=== PATIENT | male | born 1960 | race Caucasian/White ===

== ENCOUNTER 2020-05-05 12:00 | Inpatient (IN) | payer OTHER ==
[~2020-05-05] VITALS: Ht 167.6 cm; Wt 88.3 kg
[2020-05-05 14:16] LABS: BASOPHILS % (AUTO) 1.5 % (0.0-5.0); EOSINOPHILS % (AUTO) 6.8 % (0.0-8.0); HEMATOCRIT 41.5 % (42-54); LYMPHOCYTES % (AUTO) 23.1 % (21.0-51.0); MEAN CORPUSCULAR HEMOGLOBIN 30.8 pg (27.0-33.0); MEAN CORPUSCULAR VOLUME 93.3 fL (79-99); MONOCYTES % (AUTO) 12.6 % (3.0-13.0); NEUTROPHILS % (AUTO) 55.9 % (40.0-77.0); PLATELET COUNT (AUTO) 353 K/uL (130-400); RED BLOOD CELL COUNT(AUTO) 4.45 MIL/uL (4.50-6.20); RED CELL DISTRIBUTION WIDTH 12.6 % (11.0-15.5); WHITE BLOOD COUNT (AUTO) 8.7 K/uL (4.8-10.8)
[2020-05-05 14:33] LABS: INR 0.9 (0.85-1.15); PROTHROMBIN TIME 9.8 SEC (9.6-11.6)
[2020-05-05 14:34] LABS: ALBUMIN 3.9 g/dL (3.5-5.0); BILIRUBIN,TOTAL 0.8 mg/dL (0.2-1.0); CREATININE 1.1 mg/dL (0.5-1.5); POTASSIUM 3.8 mmol/L (3.5-5.1); TOTAL PROTEIN, SERUM 8.1 g/dL (6.0-8.3)
[2020-05-05 14:45] LABS: HEMOGLOBIN A1C 5.5 % (4.0-6.0)
[2020-05-09] MEDS ORDERED: POTA-79 PO (13:50)
[2020-05-09] MEDS ORDERED: ASPI-1443 PO (13:50)
[2020-05-09] MEDS ORDERED: FURO20TA4 PO (13:50)
[2020-05-09] MEDS ORDERED: ESOM20CA39 PO (13:50)
--- NOTE | 2020-05-09 14:00 | NUR ---
HX RIGHT LEG INFECTION PER PT, HE HAS HAD A LEG INFECTION 3 YRS AGO, OPEN, DRAINING WOUND, WAS TREATED WITH ANTIBIOTICS, WOUND WAS CULTURED BUT PER PT HE WAS NOT INFORMED OF ANY POSITIVE RESULTS FOR MDRO'S. WOUND IS ALREADY HEALED AT PRESENT, PT DENIES ANY S/SX OF INFECTION. NOTIFIED RAMSES SANDOVAL OF INFECTION CONTROL AND PER RAMSES, NO NEED TO PLACE PT ON ISOLATION AND TO NOTIFY MD/OR. JAIME PICHARDO DR. NURSE NOTIFIED.
--- NOTE | 2020-05-09 14:04 | NUR ---
NOTIFIED JAIME PICHARDO DR. NURSE OF CAROTID DUPLEX RESULT. ORDERS TO DRAW TYPE AND CROSS 2 UNITS PLATELETS, 2 UNITS FFP UPON ARRIVAL TO [facility]
[2020-05-11] VITALS (9 sets, daily range): BP systolic 109–137; BP diastolic 49–63
[2020-05-11] MEDS: CEFUROXIME SODIUM 1.5 GM VIAL IVP SCH ×3 (06:00→13:50)
[2020-05-11] MEDS ORDERED: EPINEPHRINE 10 MG in SODIUM CHLORIDE 0.9% 240 ML IV PRN (08:00)
[2020-05-11] MEDS ORDERED: NOREPINEPHRINE BITARTRATE 8 MG in DEXTROSE 5%-WATER 250 ML IV PRN (08:00)
[2020-05-11] MEDS ORDERED: AMINOCAPROIC ACID 15,000 MG in SODIUM CHLORIDE 0.9% 500ML 500 ML IV PRN (08:00)
--- NOTE | 2020-05-11 08:00 | NUR ---
POTENTIAL FOR INFECTION: CLIPPED FROM CHIN TO FEET PER SEVEN BOCANEGRA, FOLLOWED BY WIPING WITH ELIAS : 2% CHLORHEXIDINE GLUCONATE CLOTH PATIENTS PRE-OP SKIN PREP.
[2020-05-11] MEDS ORDERED: NITROGLYCERIN 50 MG/D5% WATER 1 BOT ONE (08:50)
[2020-05-11] MEDS ORDERED: CEFAZOLIN SODIUM 1 GM VIAL ONE (09:10)
[2020-05-11] MEDS ORDERED: HEPARIN SODIUM 1000UNIT/ML 10ML VIAL ONE (09:10)
[2020-05-11] MEDS ORDERED: SODIUM BICARB 50MEQ 50ML VIAL ONE ×2 (09:10→09:34)
[2020-05-11] MEDS ORDERED: EPINEPHRINE 1 MG/ML AMPULE ONE (09:10)
[2020-05-11] MEDS ORDERED: AMINOCAPROIC ACID 250 MG/ML 20 ML VIAL IV ONE ×2 (09:10→11:45)
[2020-05-11] MEDS ORDERED: LIDOCAINE PF 2% 5ML ABBOJECT ONE (09:10)
[2020-05-11] MEDS ORDERED: PROTAMINE SULFATE 10 MG/ML 25ML VIAL IV ONE (09:10)
[2020-05-11] MEDS ORDERED: ESMOLOL HCL 10 MG/ML 10 ML VIAL ONE (09:10)
[2020-05-11] MEDS ORDERED: PROPOFOL 10 MG/ML 20ML VIAL IV ONE (09:11)
[2020-05-11] MEDS ORDERED: ROPIVACAINE 0.5% 5MG/ML 30ML IJ ONE (09:11)
[2020-05-11] MEDS ORDERED: FENTANYL CITRATE PF 50 MCG/1 ML 20ML VIAL IJ ONE (09:11)
[2020-05-11] MEDS ORDERED: ROCURONIUM 10MG/1ML SYR 10 MG/ML ML ONE ×2 (09:11→17:59)
[2020-05-11] MEDS ORDERED: MIDAZOLAM HCL 1 MG/ML 2ML VIAL ONE (09:11)
[2020-05-11] MEDS ORDERED: NOREPINEPHRINE BITARTRATE 1 MG/1 ML ML IV ONE (09:11)
[2020-05-11] MEDS ORDERED: KETAMINE 50MG/ML SYRINGE 50 MG/ML DISP.SYRIN IV ONE (09:12)
[2020-05-11] MEDS ORDERED: SODIUM CHLORIDE 0.9% 1000ML 1,000 ML IV ONE ×2 (09:19→16:39)
[2020-05-11] MEDS ORDERED: AMIODARONE HCL 50 MG/ML 3 ML VIAL ONE ×2 (09:34→16:35)
[2020-05-11] MEDS ORDERED: VITA1TAB22 PO (09:43)
[2020-05-11] MEDS ORDERED: ROPIVACAINE 0.2% 2MG/ML 100ML VIAL IJ ONE (11:44)
[2020-05-11] MEDS ORDERED: ALBUMIN (HUMAN) 25% 50 ML IV ONE (11:45)
[2020-05-11] MEDS ORDERED: MAGNESIUM SULFATE 1 GM/2 ML VIAL IM ONE (11:45)
[2020-05-11] MEDS ORDERED: LIDOCAINE PF 2% 5ML ABBOJECT IVP ONE (11:45)
[2020-05-11] MEDS ORDERED: MANNITOL 25% 50ML VIAL IV ONE (11:45)
[2020-05-11] MEDS ORDERED: CALCIUM CHLORIDE 100 MG/ML 10 ML SYG IVP ONE (11:45)
[2020-05-11] MEDS ORDERED: HEPARIN SODIUM 1000UNIT/ML 10ML VIAL IV ONE (11:45)
[2020-05-11] MEDS ORDERED: PHENYLEPHRINE HCL 10 MG/ML 1ML VIAL IV ONE (11:45)
[2020-05-11] MEDS ORDERED: SODIUM BICARB 8.4% 50ML SYRINGE IVP ONE (11:45)
[2020-05-11] MEDS ORDERED: EPHEDRINE SULFATE 50 MG/ML AMPULE ONE (13:13)
[2020-05-11] MEDS ORDERED: DELNIDO FORMULA 2 BAG IV ONE (14:17)
[2020-05-11 14:38] LABS: ABG BASE EXCESS 1.3 mmol/L (-2.0-3.0); ABG HCO3 25.7 mmol/L (21.0-28.0); ABG OXYGEN SATURATION 99.2 % (95.0-99.0); ABG PCO2 40 mmHg (35-48)
[2020-05-11] MEDS ORDERED: OCTYL 2-CYANOACRYLATE 1 EACH TP ONE (14:53)
[2020-05-11 16:08] LABS: ABG BASE EXCESS -6.5 mmol/L (-2.0-3.0); ABG HCO3 19.1 mmol/L (21.0-28.0); ABG OXYGEN SATURATION 98.9 % (95.0-99.0); ABG PCO2 38 mmHg (35-48)
[2020-05-11] MEDS ORDERED: SODIUM CHLORIDE 0.9% 500ML 500 ML IV SCH (16:20)
[2020-05-11] MEDS ORDERED: ACETAMINOPHEN 325 MG TAB PO PRN (16:30)
[2020-05-11] MEDS ORDERED: ALBUMIN (HUMAN) 5% 250 ML IV PRN (16:30)
[2020-05-11] MEDS ORDERED: NITROGLYCERIN 50 MG/D5% WATER 250 BOT IV SCH (16:30)
[2020-05-11] MEDS ORDERED: MAGNESIUM 2GM PREMIX 50ML 50 ML IV PRN (16:30)
[2020-05-11] MEDS ORDERED: MORPHINE SULFATE 2 MG/ML 1ML SYG IV PRN ×2 (16:30→17:30)
[2020-05-11] MEDS ORDERED: SODIUM CHLORIDE 0.9% 1000ML 1,000 ML IV SCH (16:30)
[2020-05-11] MEDS ORDERED: NOREPINEPHRINE 4MG/NS 250ML 250 ML IV PRN (16:30)
[2020-05-11] MEDS ORDERED: EPINEPHRINE 10 MG in DEXTROSE 5%-WATER 250 ML IV PRN (16:30)
[2020-05-11] MEDS ORDERED: PROPOFOL 1000 MG/100 ML 100 ML IV PRN (16:30)
[2020-05-11] MEDS ORDERED: TRAMADOL HCL 50 MG TABLET PO PRN (16:30)
[2020-05-11] MEDS ORDERED: GLUCAGON 1MG KIT 1 MG ML IM PRN (16:30)
[2020-05-11] MEDS ORDERED: SODIUM CHLORIDE 0.9% 10 ML VIAL IVP PRN (16:30)
[2020-05-11] MEDS ORDERED: POTASSIUM PHOS 15 mMOL+NS250ML 250 ML IV PRN (16:30)
[2020-05-11] MEDS ORDERED: MORPHINE SULFATE 4 MG/1ML SYG IV PRN (16:30)
[2020-05-11] MEDS ORDERED: DEXTROSE 50%-WATER 50 ML DISP.SYRIN IV PRN (16:30)
[2020-05-11] MEDS ORDERED: INSULIN REGULAR, HUMAN 3ML 100 UNIT in SODIUM CHLORIDE 0.9% 99 ML IV SCH ×2 (16:30)
[2020-05-11] MEDS ORDERED: Q-PUMP 1 EACH IRRIG SCH (16:30)
[2020-05-11] MEDS ORDERED: AMINOCAPROIC ACID 15,000 MG in SODIUM CHLORIDE 0.9% 250 ML IV SCH (16:30)
[2020-05-11] MEDS ORDERED: ACETAMINOPHEN 650 MG SUPPOSITORY RC PRN (16:30)
[2020-05-11] MEDS ORDERED: GLYCOPYRROLATE 1 MG/5 ML SYRINGE ONE (16:44)
[2020-05-11 16:47] LABS: ABG BASE EXCESS 0.3 mmol/L (-2.0-3.0); ABG HCO3 24.4 mmol/L (21.0-28.0); ABG OXYGEN SATURATION 98.6 % (95.0-99.0); ABG PCO2 37 mmHg (35-48)
[2020-05-11] MEDS ORDERED: VASOPRESSIN 20 UNITS/ML 1ML VIAL ONE (16:51)
[2020-05-11] MEDS ORDERED: CEFUROXIME SODIUM 1.5 GM VIAL ONE (17:34)
[2020-05-11 17:47] LABS: ABG BASE EXCESS -4.7 mmol/L (-2.0-3.0); ABG HCO3 19.5 mmol/L (21.0-28.0); ABG OXYGEN SATURATION 98.8 % (95.0-99.0); ABG PCO2 33 mmHg (35-48)
[2020-05-11] MEDS ORDERED: PROTAMINE SULFATE 10 MG/ML 5 ML VIAL ONE (17:50)
[2020-05-11 18:34] LABS: ABG BASE EXCESS -3.3 mmol/L (-2.0-3.0); ABG HCO3 21.9 mmol/L (21.0-28.0); ABG OXYGEN SATURATION 98.4 % (95.0-99.0); ABG PCO2 40 mmHg (35-48)
[2020-05-11] MEDS: POTASSIUM CHLORIDE 20MEQ/100ML 100 ML IV PRN ×6 (18:40→23:44)
[2020-05-11] MEDS: SODIUM BICARB 50MEQ 50ML VIAL IV PRN ×4 (18:40→23:02)
[2020-05-11 18:42] LABS: HEMATOCRIT 32.3 % (42-54); MEAN CORPUSCULAR HEMOGLOBIN 30.8 pg (27.0-33.0); MEAN CORPUSCULAR HGB CONC 33.4 g/dL (32.0-36.0); RED BLOOD CELL COUNT(AUTO) 3.51 MIL/uL (4.50-6.20); RED CELL DISTRIBUTION WIDTH 12.6 % (11.0-15.5); WHITE BLOOD COUNT (AUTO) 24.1 K/uL (4.8-10.8)
[2020-05-11 18:57] LABS: INR 1.06 (0.85-1.15); PROTHROMBIN TIME 11.4 SEC (9.6-11.6)
[2020-05-11 19:12] LABS: CREATININE 1.2 mg/dL (0.5-1.5); MAGNESIUM 2.8 mg/dL (1.80-2.40); PHOSPHORUS 3.2 mg/dL (2.5-4.9); POTASSIUM 3.2 mmol/L (3.5-5.1)
--- NOTE | 2020-05-11 19:15 | NUR ---
PT ARRIVED TO CVR 213 AT 1810. VITAL SIGNS STABLE.
[2020-05-11] MEDS ORDERED: PHARMACY COMMUNICATION MISC SCH ×2 (19:30→20:45)
[2020-05-11] MEDS ORDERED: CALCIUM GLUCONATE 1 GM/10 ML VIAL IV ONE ×2 (19:34→20:23)
[2020-05-11] MEDS: CALCIUM GLUCONATE 1 GM in SODIUM CHLORIDE 0.9% 50 ML IV PRN ×4 (19:35→23:18)
[2020-05-11] MEDS: FAMOTIDINE/PF 20 MG/2 ML VIAL IV SCH (19:36)
[2020-05-11 19:51] LABS: ABG BASE EXCESS -2.4 mmol/L (-2.0-3.0); ABG HCO3 22.7 mmol/L (21.0-28.0); ABG OXYGEN SATURATION 97.8 % (95.0-99.0); ABG PCO2 40 mmHg (35-48)
[2020-05-11] MEDS: CEFAZOLIN SODIUM 1 GM VIAL IV SCH (21:07)
[2020-05-11 21:48] LABS: ABG BASE EXCESS 0.2 mmol/L (-2.0-3.0); ABG HCO3 25.3 mmol/L (21.0-28.0); ABG OXYGEN SATURATION 98.5 % (95.0-99.0); ABG PCO2 43 mmHg (35-48)
[2020-05-11] MEDS: ONDANSETRON HCL 4 MG/2 ML VIAL IV PRN (22:56)
[2020-05-11 22:57] LABS: ABG OXYGEN SATURATION 98.7 % (95.0-99.0); ABG PCO2 36 mmHg (35-48)
--- NOTE | 2020-05-11 23:00 | NUR ---
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 PT WAS ABLE TO ACHIEVE VITAL CAPACITY OF 2000ML AND NIF OF -45. PT EXTUBATED AND PLACED ON 40% CAFM HE WAS ENCOURAGED TO TAKE SLOW DEEP BREATHS. WILL CONTINUE TO MONITOR.
[2020-05-12] VITALS (29 sets, daily range): BP systolic 98–162; BP diastolic 39–82
[2020-05-12 00:41] LABS: ABG OXYGEN SATURATION 98.5 % (95.0-99.0); ABG PCO2 42 mmHg (35-48)
[2020-05-12] MEDS: POTASSIUM CHLORIDE 20MEQ/100ML 100 ML IV PRN ×2 (00:43→01:40)
[2020-05-12 01:48] LABS: CREATININE 1.8 mg/dL (0.5-1.5); MAGNESIUM 2.3 mg/dL (1.80-2.40); POTASSIUM 3.8 mmol/L (3.5-5.1)
[2020-05-12 04:09] LABS: ABG BASE EXCESS 2.2 mmol/L (-2.0-3.0); ABG HCO3 28.7 mmol/L (21.0-28.0); ABG OXYGEN SATURATION 97.3 % (95.0-99.0); ABG PCO2 53 mmHg (35-48)
[2020-05-12 04:26] LABS: MEAN CORPUSCULAR HEMOGLOBIN 30.6 pg (27.0-33.0); MEAN CORPUSCULAR HGB CONC 33.2 g/dL (32.0-36.0); MEAN CORPUSCULAR VOLUME 92.1 fL (79-99); RED BLOOD CELL COUNT(AUTO) 3.69 MIL/uL (4.50-6.20); WHITE BLOOD COUNT (AUTO) 19.8 K/uL (4.8-10.8)
[2020-05-12] MEDS: CALCIUM GLUCONATE 1 GM in SODIUM CHLORIDE 0.9% 50 ML IV PRN ×2 (04:32→12:37)
[2020-05-12 04:44] LABS: INR 0.99 (0.85-1.15); PARTIAL THROMBOPLASTIN TIME 27.4 SEC (26.3-35.5); PROTHROMBIN TIME 10.7 SEC (9.6-11.6)
[2020-05-12 04:46] LABS: CREATININE 1.5 mg/dL (0.5-1.5); MAGNESIUM 2.1 mg/dL (1.80-2.40); PHOSPHORUS 1.2 mg/dL (2.5-4.9); POTASSIUM 4.1 mmol/L (3.5-5.1)
[2020-05-12] MEDS ORDERED: PHARMACY COMMUNICATION MISC SCH (05:00)
[2020-05-12] MEDS: CEFAZOLIN SODIUM 1 GM VIAL IV SCH ×2 (05:07→13:09)
[2020-05-12 07:04] LABS: ABG BASE EXCESS 5.2 mmol/L (-2.0-3.0); ABG HCO3 31.7 mmol/L (21.0-28.0); ABG OXYGEN SATURATION 97.6 % (95.0-99.0); ABG PCO2 55 mmHg (35-48)
[2020-05-12] MEDS: ASPIRIN 81 MG EC TAB PO SCH (08:25)
[2020-05-12] MEDS: FUROSEMIDE 10 MG/ML 2ML VIAL IV SCH ×2 (08:25→21:15)
[2020-05-12] MEDS: FAMOTIDINE/PF 20 MG/2 ML VIAL IV SCH ×2 (08:25→21:15)
[2020-05-12] MEDS: ACETAMINOPHEN 325 MG TAB PO PRN (08:32)
[2020-05-12 13:03] LABS: ABG PCO2 45 mmHg (35-48)
[2020-05-12] MEDS: ONDANSETRON HCL 4 MG/2 ML VIAL IV PRN (13:08)
--- NOTE | 2020-05-12 16:39 | NUR ---
DC PLAN VISITED WITH PATIENT. PATIENT LIVES ALONE. INDEPENDENT ABLE TO PERFORM ADL'S. PATIENT HAS NO SERVICES OR DME'S. FEELS SAFE TO RETURN HOME. SAID HE WILL TAKE A TAXI HOME. DOES NOT HAVE ANY ONE TO HELP HIM. SAID GOT A LOT OF GROCERIES AND WILL BE FINE. GAVE HIM PRIVATE CAREGIVER INFO IN CASE HE NEEDS HELP WITH ADLS. PER PT HAS 14 STAIRS TO GET HOME. NOT SURE WILL BE ABLE TO DO IT. CM WILL FOLLOW UP WITH PATIENT AFTER PT TO SEE IF NEEDS TO GO SOMEPLACE. OFFERED SAID NO IF NEEDS WILL GET HOME HEALTH. CM WILL TRY AGAIN TOMORROW. Addendum: 05/12/20 at 1644 by ANDRÉS WALTER RN Amended: Links added.
[2020-05-12] MEDS: TRAMADOL HCL 50 MG TABLET PO PRN (21:16)
[2020-05-13] VITALS (27 sets, daily range): BP systolic 89–148; BP diastolic 44–74
[2020-05-13] MEDS: TRAMADOL HCL 50 MG TABLET PO PRN (06:31)
[2020-05-13 06:32] LABS: HEMATOCRIT 30.6 % (42-54); MEAN CORPUSCULAR HEMOGLOBIN 31.1 pg (27.0-33.0); MEAN CORPUSCULAR VOLUME 94.2 fL (79-99); RED BLOOD CELL COUNT(AUTO) 3.25 MIL/uL (4.50-6.20); RED CELL DISTRIBUTION WIDTH 13.1 % (11.0-15.5); WHITE BLOOD COUNT (AUTO) 24.1 K/uL (4.8-10.8)
[2020-05-13 06:39] LABS: POTASSIUM 4.1 mmol/L (3.5-5.1)
[2020-05-13] MEDS: FUROSEMIDE 20 MG TABLET PO SCH ×2 (09:52→17:39)
[2020-05-13] MEDS: METOPROLOL TARTRATE 25 MG TAB PO SCH ×2 (09:52→21:39)
[2020-05-13] MEDS: ASPIRIN 81 MG EC TAB PO SCH (09:52)
[2020-05-13] MEDS: ACETAMINOPHEN 325 MG TAB PO PRN (09:54)
[2020-05-13] MEDS: FAMOTIDINE/PF 20 MG/2 ML VIAL IV SCH ×2 (09:54→21:39)
--- NOTE | 2020-05-13 17:00 | NUR ---
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 LATERAL CHEST INCISION DRY AND INTACT, PT IS AMBULATORY FROM CHAIR TO BED, GAIT STEADY AND STRONG WITH STAND BY ASSIST. CALL LIGHT WITHIN REACH.
[2020-05-14] VITALS (10 sets, daily range): BP systolic 92–113; BP diastolic 52–65
--- NOTE | 2020-05-14 00:16 | NUR ---
was called and notified patient voided 20 ml only and Bladder scanned revealed 485ml.Received order to insert Villarreal catheter,Pashto 16 villarreal inserted after explained to patient the procedure and agreed he needs the villarreal.Observed aseptic technique entire procedure.Yellow colored urine draining well.Patient tolerated well.
[2020-05-14 04:07] LABS: HEMATOCRIT 25.8 % (42-54); MEAN CORPUSCULAR HEMOGLOBIN 30.9 pg (27.0-33.0); MEAN CORPUSCULAR HGB CONC 32.9 g/dL (32.0-36.0); MEAN CORPUSCULAR VOLUME 93.8 fL (79-99); NUCLEATED RED BLOOD CELLS 0.1 % (0.0-0.19); RED BLOOD CELL COUNT(AUTO) 2.75 MIL/uL (4.50-6.20); RED CELL DISTRIBUTION WIDTH 12.6 % (11.0-15.5); WHITE BLOOD COUNT (AUTO) 19.4 K/uL (4.8-10.8)
[2020-05-14 04:21] LABS: POTASSIUM 3.9 mmol/L (3.5-5.1)
--- NOTE | 2020-05-14 04:33 | NUR ---
Dr.Sheriff Campbell was called and notiifed regarding ECG result of Afib RVR in the 110-130's inferior infarct possibly acute:Acute SD/STEMI consider right ventricular involvement in acute inferior infarct.Patient denies chest pain,palpitation and shortness of breath.Received new order.
[2020-05-14] MEDS ORDERED: DILTIAZEM HCL 125 MG/25 ML 125 MG in SODIUM CHLORIDE 0.9% 100 ML IV PRN (04:45)
[2020-05-14] MEDS ORDERED: DILTIAZEM HCL 5 MG/ML 5 ML VIAL IVP PRN (04:45)
[2020-05-14] MEDS: POTASSIUM CHLORIDE 10% ELIXIR 20 MEQ/15 ML UDCUP PO SCH (05:45)
--- NOTE | 2020-05-14 07:19 | NUR ---
Patient on Cardizem drip @10mg/hr ,afib rvr /hr in the 130's as per compliance monitor.Endorsed care to incoming NOD using SBAR, all questions answered.
[2020-05-14] MEDS: ENOXAPARIN SODIUM 30 MG/0.3 ML SQ SCH (09:00)
[2020-05-14] MEDS: FAMOTIDINE/PF 20 MG/2 ML VIAL IV SCH ×2 (09:00→20:56)
[2020-05-14] MEDS: ASPIRIN 81 MG EC TAB PO SCH (09:00)
[2020-05-14] MEDS ORDERED: AMIODARONE HCL 900 MG in DEXTROSE 5%-WATER 500 ML IV SCH (12:30)
[2020-05-14] MEDS ORDERED: AMIODARONE HCL 150 MG in DEXTROSE 5%-WATER 100 ML IV SCH (12:30)
[2020-05-14] MEDS ORDERED: AMIODARONE HCL 450 MG in DEXTROSE 5%-WATER 250 ML IV SCH (12:45)
[2020-05-14] MEDS ORDERED: AMIODARONE HCL 360 MG in DEXTROSE 5%-WATER 200 ML IV SCH (12:45)
[2020-05-14] MEDS: FUROSEMIDE 20 MG TABLET PO SCH ×2 (13:07→20:57)
[2020-05-14] MEDS: METOPROLOL TARTRATE 25 MG TAB PO SCH (13:07)
[2020-05-14] MEDS: TAMSULOSIN HCL 0.4 MG CAP.ER.24H PO SCH (13:07)
[2020-05-14] MEDS ORDERED: PHARMACY COMMUNICATION MISC SCH ×2 (15:30→21:45)
[2020-05-14] MEDS: TRAMADOL HCL 50 MG TABLET PO PRN (21:26)
[2020-05-14] MEDS ORDERED: DIGOXIN 250 MCG/ML 2ML AMP IV STA (21:45)
[2020-05-15] VITALS (7 sets, daily range): BP systolic 90–120; BP diastolic 50–69
[2020-05-15] MEDS ORDERED: DIGOXIN 250 MCG/ML 2ML AMP IV SCH
[2020-05-15 05:28] LABS: HEMATOCRIT 24.9 % (42-54); MEAN CORPUSCULAR HEMOGLOBIN 30.1 pg (27.0-33.0); MEAN CORPUSCULAR HGB CONC 32.5 g/dL (32.0-36.0); MEAN CORPUSCULAR VOLUME 92.6 fL (79-99); NUCLEATED RED BLOOD CELLS 0.1 % (0.0-0.19); RED BLOOD CELL COUNT(AUTO) 2.69 MIL/uL (4.50-6.20); RED CELL DISTRIBUTION WIDTH 12.4 % (11.0-15.5); WHITE BLOOD COUNT (AUTO) 15.4 K/uL (4.8-10.8)
[2020-05-15 05:42] LABS: CREATININE 0.8 mg/dL (0.5-1.5); MAGNESIUM 2.1 mg/dL (1.80-2.40); POTASSIUM 3.7 mmol/L (3.5-5.1)
[2020-05-15] MEDS: POTASSIUM CHLORIDE 10% ELIXIR 20 MEQ/15 ML UDCUP PO SCH (07:05)
--- NOTE | 2020-05-15 07:40 | NUR ---
ASSESSMENT ENCOUNTERED PT A&OX3, CALM COOPERATIVE AND DOES NOT APPEAR TO BE IN ANY DISTRESS NOR ANY NEURO DEFICITS PRESENT. PT DENIES PAIN, SOB, NAUSEA. TELEMONITOR DISPLAYS NSR WITH INTERMITTENT ATRIAL FIBRILLATION, DR AVILA UPDATED, ORDERS RECEIVED, PT CURRENTLY ON AMIODARONE IV PROTOCOL. 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
[2020-05-15] MEDS: FUROSEMIDE 20 MG TABLET PO SCH ×2 (08:59→21:26)
[2020-05-15] MEDS: TAMSULOSIN HCL 0.4 MG CAP.ER.24H PO SCH (08:59)
[2020-05-15] MEDS: ASPIRIN 81 MG EC TAB PO SCH (08:59)
[2020-05-15] MEDS: FAMOTIDINE 20MG TAB 20 MG TAB PO SCH ×2 (08:59→21:26)
[2020-05-15] MEDS: ENOXAPARIN SODIUM 30 MG/0.3 ML SQ SCH (09:00)
[2020-05-15] MEDS: METOPROLOL TARTRATE 25 MG TAB PO SCH ×2 (09:03→21:26)
[2020-05-15] MEDS: AMIODARONE HCL 200 MG TABLET PO SCH ×2 (10:06→21:26)
[2020-05-15] MEDS: CALCIUM GLUCONATE 1 GM in SODIUM CHLORIDE 0.9% 50 ML IV PRN (10:07)
--- NOTE | 2020-05-15 15:26 | NUR ---
[facility]IN NU[facility]EZ Met with pt this afternoon to discuss Md order/recommendation for SNF [facility]. Pt in agreement [facility]/PC consent obtained for [facility]. Referral/[facility] faxed to [facility]. Spoke jocelyn Gregory regarding new referral. States will review information and submit to ins for auth in am. Discussed Covid 19 form vs Covid testing requirements. states will need to f/u.
[2020-05-15] MEDS: TRAMADOL HCL 50 MG TABLET PO PRN (22:16)
[2020-05-16] MEDS: POTASSIUM CHLORIDE 10% ELIXIR 20 MEQ/15 ML UDCUP PO SCH (02:33)
[2020-05-16 03:44] VITALS: BP 95/49
[2020-05-16] MEDS: ENOXAPARIN SODIUM 30 MG/0.3 ML SQ SCH (07:18)
[2020-05-16] MEDS: AMIODARONE HCL 200 MG TABLET PO SCH ×2 (07:18→19:48)
[2020-05-16] MEDS: FUROSEMIDE 20 MG TABLET PO SCH ×2 (07:18→19:48)
[2020-05-16] MEDS: FAMOTIDINE 20MG TAB 20 MG TAB PO SCH ×2 (07:18→19:47)
[2020-05-16] MEDS: TAMSULOSIN HCL 0.4 MG CAP.ER.24H PO SCH (07:18)
[2020-05-16] MEDS: ASPIRIN 81 MG EC TAB PO SCH (07:19)
[2020-05-16] MEDS: METOPROLOL TARTRATE 25 MG TAB PO SCH ×2 (07:19→19:48)
--- NOTE | 2020-05-16 07:50 | NUR ---
ASSESSMENT PT IS AAOX3 DENIES CP DENIES SOB DENIES NV SITTING UPRIGHT IN CARDIAC CHAIR. CALL LIGHT WITHIN REACH.
[2020-05-16 08:00] VITALS: BP 97/61
[2020-05-16] MEDS ORDERED: DIGOXIN 125 MCG TABLET PO SCH (09:00)
--- NOTE | 2020-05-16 10:00 | NUR ---
cm note faxed edna muller, PT notes and covid form. pending approval will come evaluate.
[2020-05-16 11:26] VITALS: BP 89/52
--- NOTE | 2020-05-16 13:42 | NUR ---
HERMAN CATH DC CATH TIP INTACT DENIES PAIN. DTV IN 8HRS
[2020-05-16 16:00] VITALS: BP 101/58
--- NOTE | 2020-05-16 17:00 | NUR ---
cm note received message,that edna from [employer] has approved pt.
[2020-05-16 19:00] VITALS: BP 96/53
[2020-05-16] MEDS: TRAMADOL HCL 50 MG TABLET PO PRN (19:52)
[2020-05-16 23:08] VITALS: BP 106/47
--- NOTE | 2020-05-17 | NUR ---
PT IS PENDING APPROVAL FROM [email or web address]. IS GENERALLY WEAK BUT STATES IS ABLE TO AMBULATE WITHOUT ASSISTANCE. ROOM AIR AT THIS TIME. O2 PRN. ABLE TO TAKE MEDICATIONS NEEDED. BP WAS DECREASED, HELD THE LOPRESSOR 12.5MG FOR THE MOMENT. WILL MONITOR BP. PT IS ASYMPTOMATIC.
[2020-05-17 03:49] VITALS: BP 96/46
[2020-05-17 05:10] LABS: MEAN CORPUSCULAR HEMOGLOBIN 30.6 pg (27.0-33.0); MEAN CORPUSCULAR HGB CONC 33.2 g/dL (32.0-36.0); MEAN CORPUSCULAR VOLUME 92.3 fL (79-99); PLATELET COUNT (AUTO) 243 K/uL (130-400); RED BLOOD CELL COUNT(AUTO) 2.71 MIL/uL (4.50-6.20); RED CELL DISTRIBUTION WIDTH 12.5 % (11.0-15.5); WHITE BLOOD COUNT (AUTO) 12.6 K/uL (4.8-10.8)
[2020-05-17 05:21] LABS: EOSINOPHILS % (MANUAL) 15 % (1-6); LYMPHOCYTES % (MANUAL) 16 % (22-44); MAN.DIFF COMMENT-IMPRESSION MANUAL DIFFERENTIAL; MONOCYTES % (MANUAL) 13 % (2-9); SEGMENTED NEUTROPHILS % 56 % (40-70)
[2020-05-17 05:26] LABS: CREATININE 0.9 mg/dL (0.5-1.5); POTASSIUM 3.2 mmol/L (3.5-5.1)
[2020-05-17] MEDS ORDERED: POTASSIUM CHLORIDE 20 MEQ ERTAB PO ONE (05:47)
[2020-05-17 08:00] VITALS: BP 109/63
[2020-05-17] MEDS: ASPIRIN 81 MG EC TAB PO SCH (09:03)
[2020-05-17] MEDS: TAMSULOSIN HCL 0.4 MG CAP.ER.24H PO SCH (09:03)
[2020-05-17] MEDS: FAMOTIDINE 20MG TAB 20 MG TAB PO SCH (09:03)
[2020-05-17] MEDS: FUROSEMIDE 20 MG TABLET PO SCH (09:03)
[2020-05-17] MEDS: METOPROLOL TARTRATE 25 MG TAB PO SCH (09:03)
[2020-05-17] MEDS: AMIODARONE HCL 200 MG TABLET PO SCH (09:03)
[2020-05-17] MEDS: ENOXAPARIN SODIUM 30 MG/0.3 ML SQ SCH (09:04)
--- NOTE | 2020-05-17 11:00 | NUR ---
CM Note: [place] approval CM spoke to [employer]. Confirmed pt has approval. Safe to transfer via [employer] transport van today once MD clear. Primary nurse aware. CM to cont to follow up.
[2020-05-17 11:18] VITALS: BP 101/52
[2020-05-17] MEDS: TRAMADOL HCL 50 MG TABLET PO PRN (13:01)
[2020-05-17] MEDS ORDERED: METO25 PO (14:48)
[2020-05-17] MEDS ORDERED: TRAM50TA4 PO (14:48)
[2020-05-17] MEDS ORDERED: FURO20TA6 PO (14:48)
[2020-05-17] MEDS ORDERED: TAMS-1 PO (14:48)
[2020-05-17] MEDS ORDERED: AMIO200T6 PO (14:48)
[2020-05-17] MEDS ORDERED: AMIO400T4 PO (14:52)
[2020-05-17 16:00] VITALS: BP 96/59
--- NOTE | 2020-05-17 18:00 | NUR ---
DC INSTRUCTIONS DC HOME INSTRUCTIONS GIVEN TO PT, ACKNOWLEDGED ALL INFORMATION, ALL QUESTIONS ANSWERED. EXTENSIVE EDUCATION GIVEN ON MEDICATIONS AND AMIODARONE ORDERED.
== END 2020-05-17 19:02 | disposition home or self-care (01) | DRG 219 ==
LOC: EDSTATUS 12:00 → DAHIP 05-11 07:58 → 2CV 05-11 15:52 → 2CH 05-12 19:01 → 4CH 05-13 17:33
PROVIDERS: ADMIT Thoracic Surgery (Cardiothoracic Vascular Surgery); ATTEND Thoracic Surgery (Cardiothoracic Vascular Surgery)
PROC: 02RF08Z Replacement of Aortic Valve with Zooplastic Tissue, Open Approach (ICD-10-PCS; principal; 2020-05-11 13:48)
PROC: 5A1221Z Performance of Cardiac Output, Continuous (ICD-10-PCS; 2020-05-11 13:48)
DX: I35.2 Nonrheumatic aortic (valve) stenosis with insufficiency (principal); N17.0 Acute kidney failure with tubular necrosis; D62 Acute posthemorrhagic anemia; Z95.1 Presence of aortocoronary bypass graft; E78.5 Hyperlipidemia, unspecified; E87.70 Fluid overload, unspecified; I25.10 Atherosclerotic heart disease of native coronary artery without angina pectoris; I48.0 Paroxysmal atrial fibrillation; Z79.82 Long term (current) use of aspirin; Z79.899 Other long term (current) drug therapy; Z95.0 Presence of cardiac pacemaker; R33.9 Retention of urine, unspecified; Z20.828 Contact with and (suspected) exposure to other viral communicable diseases
CPT/HCPCS: 36415; 71045; 71046; 80048; 80053; 82330; 82435; 82803; 82947; 82948; 83036; 83605; 83735; 84100; 84132; 84295; 85018; 85025; 85027; 85347; 85610; 85730; 86850; 86900; 86901; 86922; 93005; 93313; 93318; 93880; 94002; 94010; 94150; 97039; A4357; A7048; G0378; J0171; J0282; J0610; J0690; J0697; J1644; J1650; J1815; J1940; J2001; J2150; J2250; J2370; J2405; J2704; J2720; J2795; J3010; J3475; J3480; J3490; J7030; J7040; J7050; J7060; P9045; P9047